=== PATIENT | male | born 1945 | race Hispanic/Latino ===

== ENCOUNTER → 2020-01-29 | Outpatient (CLI) | payer OTHER | END | disposition home or self-care (01) | LOC: RAH 14:05 | PROVIDERS: ATTEND Family Medicine | DX: M51.26 Other intervertebral disc displacement, lumbar region (principal); M48.061 Spinal stenosis, lumbar region without neurogenic claudication; M89.38 Hypertrophy of bone, other site | CPT/HCPCS: 72148 ==

== ENCOUNTER 2023-10-10 11:00 | Inpatient (IN) | payer OTHER ==
[~2023-10-10] VITALS: Ht 162.6 cm; Wt 65.8 kg
[2023-10-10 12:44] LABS: BASOPHILS # (AUTO) 0.02 K/uL (0.00-0.20); BASOPHILS % (AUTO) 0.3 % (0.0-5.0); EOSINOPHILS # (AUTO) 0.17 K/uL (0.00-0.70); EOSINOPHILS % (AUTO) 2.5 % (0.0-8.0); HEMATOCRIT 39.1 % (42-54); IMMATURE GRANULOCYTE ABSOLUTE 0.01 K/uL (0-1); LYMPHOCYTES # (AUTO) 1.9 K/uL (1.0-4.8); MEAN CORPUSCULAR HEMOGLOBIN 33.2 pg (27.0-33.0); MEAN CORPUSCULAR HGB CONC 33.2 g/dL (32.0-36.0); MEAN CORPUSCULAR VOLUME 99.7 fL (79-99); MONOCYTES # (AUTO) 0.6 K/uL (0.1-1.0); MONOCYTES % (AUTO) 8.7 % (3.0-13.0); NEUTROPHILS # (AUTO) 4.1 K/uL (1.8-7.7); NEUTROPHILS % (AUTO) 60.4 % (40.0-77.0); PLATELET COUNT (AUTO) 185 K/uL (130-400); RED BLOOD CELL COUNT(AUTO) 3.92 MIL/uL (4.50-6.20); RED CELL DISTRIBUTION WIDTH 12.4 % (11.0-15.5); WHITE BLOOD COUNT (AUTO) 6.8 K/uL (4.8-10.8)
[2023-10-10 12:55] LABS: INR 1.11 (0.85-1.15); PROTHROMBIN TIME 11.9 SEC (9.6-11.6)
[2023-10-10 12:56] LABS: ALBUMIN 3.4 g/dL (3.5-5.0); BILIRUBIN,TOTAL 0.4 mg/dL (0.2-1.0); CREATININE 1.3 mg/dL (0.5-1.3); HEMOGLOBIN A1C 6.1 % (4.0-6.0); PARTIAL THROMBOPLASTIN TIME 25.4 SEC (26.3-35.5); POTASSIUM 4.3 mmol/L (3.5-5.1); TOTAL PROTEIN, SERUM 6.8 g/dL (6.0-8.3)
[2023-10-10 13:05] VITALS: BP 116/66; PULSE 89; RESP 18; TEMP 98.1
[2023-10-10 13:06] LABS: B-TYPE NATRIURETIC PEPTIDE 659 pg/mL (0-100)
[2023-10-10 13:19] LABS: ABG BASE EXCESS -1.9 mmol/L (-2.0-3.0); ABG HCO3 21.4 mmol/L (21.0-28.0); ABG OXYGEN SATURATION 96.1 % (94.0-98.0); ABG PCO2 33 mmHg (35-48); ABG PH 7.437 (7.350-7.450); CARBON MONOXIDE 0.6 % (0.5-1.5); HHb 3.9; PO2, ARTERIAL BG 83.2 mmHg (83.0-108.0); VENT MODE, BG RA (ROOM AIR)
[2023-10-10] MEDS ORDERED: ATOR40TA71 PO (13:31)
[2023-10-10] MEDS ORDERED: AEC81 PO (13:31)
[2023-10-10] MEDS ORDERED: GLIM4TAB36 PO (13:31)
[2023-10-10] MEDS ORDERED: METF-526 PO (13:31)
[2023-10-10] MEDS ORDERED: LOSA25TA41 PO (13:31)
[2023-10-11] VITALS (52 sets, daily range): BP systolic 87–172; BP diastolic 39–82; PULSE 77–136; RESP 5–19; TEMP 96.9–100.7; O2SAT 97–100
[2023-10-11] MEDS ORDERED: EPINEPHRINE 10 MG in 0.9% NACL 250ML IV PRN (06:30)
[2023-10-11] MEDS ORDERED: NOREPINEPHRIN 8MG/250ML NS 250 ML IV PRN (06:30)
[2023-10-11] MEDS ORDERED: LIDOCAINE 2G/250ML 250 ML IV ONE (07:47)
[2023-10-11] MEDS ORDERED: NITROGLYCERIN 50MG/D5W 250ML 1 BOT ONE (07:48)
[2023-10-11] MEDS ORDERED: HEParin-NS 1,000 UNIT/500 ML 500 ML IV ONE (07:49)
[2023-10-11] MEDS: ceFAZolin SODIUM 2 GM VIAL ONE (07:57)
[2023-10-11] MEDS: 0.9%NACL 1000ML 1,000 ML IV ONE (07:57)
[2023-10-11] MEDS: metoPROLOL tartRATE 25 MG TAB ONE (08:27)
[2023-10-11] MEDS: metoPROLOL tartRATE 25 MG TAB PO ONE (08:27)
[2023-10-11] MEDS ORDERED: METO25TA6 PO (08:33)
[2023-10-11] MEDS ORDERED: HEParin 10,000 UNIT/10ML (1,000 UNIT/ML) VIAL ONE ×4 (10:01→11:28)
[2023-10-11] MEDS ORDERED: SODIUM BICARB 50MEQ 50ML VIAL 200 ML ONE (10:01)
[2023-10-11] MEDS ORDERED: aminoCAProic ACID 5,000MG VIAL ONE (10:01)
[2023-10-11] MEDS ORDERED: EPINEPHrine PF 1MG (1:1,000) 1 MG/ML AMP ONE (10:01)
[2023-10-11] MEDS ORDERED: LIDOCAINE PF 100MG/5ML (2%) SYRINGE 5ML ONE ×2 (10:01→11:26)
[2023-10-11] MEDS ORDERED: PROTamine SULFate 10 MG/ML 25ML VIAL IV ONE (10:01)
[2023-10-11] MEDS ORDERED: NOREPINEPHRINE BITARTRATE 1 MG/1 ML ML IV ONE (10:01)
[2023-10-11] MEDS ORDERED: proPOFol 10 MG/ML 20ML VIAL IV ONE (10:02)
[2023-10-11] MEDS ORDERED: FENTanyl CITRate PF 50 MCG/1 ML 20ML VIAL IJ ONE (10:02)
[2023-10-11] MEDS ORDERED: rocuRONium bROMide 10MG/1ML 5ML VL ONE (10:03)
[2023-10-11] MEDS ORDERED: VASOpressin 20 UNITS/ML 1ML VIAL ONE (10:35)
[2023-10-11] MEDS ORDERED: AMIOdarone 150MG VIAL ONE (10:35)
[2023-10-11 10:42] LABS: ABG BASE EXCESS -2.1 mmol/L (-2.0-3.0); ABG HCO3 21.9 mmol/L (21.0-28.0); ABG OXYGEN SATURATION 99.7 % (94.0-98.0); ABG PCO2 35 mmHg (35-48); ABG PH 7.416 (7.350-7.450); CARBON MONOXIDE 0 % (0.5-1.5); DEVICE COMMENT 1; HHb 0.3; PO2, ARTERIAL BG 460.1 mmHg (83.0-108.0); TEMPERATURE, CELSIUS BG 36.4 CELSIUS (35.5-37.0)
[2023-10-11] MEDS ORDERED: SODIUM BICARB 50MEQ 50ML VIAL 100 ML ONE ×2 (10:43→10:49)
[2023-10-11] MEDS: POTASSIUM CHLORIDE 20 MEQ/100 ML IV ONE (10:46)
[2023-10-11] MEDS: ceFAZolin SODIUM 1 GM VIAL ONE (10:56)
[2023-10-11] MEDS: PAPAVERINE HCL 30 MG/ML 2ML VIAL ONE (10:57)
[2023-10-11] MEDS ORDERED: ETOMIDATE 20MG VIAL ONE (11:27)
[2023-10-11] MEDS ORDERED: proPOFol 1000 MG/100 ML 100 ML IV PRN (11:30)
[2023-10-11] MEDS ORDERED: aminoCAProic ACID 5,000MG VIAL 15,000 MG in 0.9% NACL 250ML 250 ML IV SCH (11:30)
[2023-10-11] MEDS ORDERED: NOREPINEPHRINE BITARTRATE 8 MG in DEXTROSE 5%-WATER 250 ML IV PRN (11:30)
[2023-10-11] MEDS ORDERED: CALCIUM GLUC 1GM 1 GM in 0.9%NACL 50ML 50 ML IV PRN (11:30)
[2023-10-11] MEDS ORDERED: MAGNESIUM HYDROXIDE 30 ML/UDCUP PO PRN (11:30)
[2023-10-11] MEDS ORDERED: 0.9%NACL 10ML VIAL IVP PRN (11:30)
[2023-10-11] MEDS ORDERED: acetaMINOPHEN 650 MG SUPPOSITORY RC PRN (11:30)
[2023-10-11] MEDS ORDERED: LACTULOSE 20 GM/30 ML UDCUP PO PRN (11:30)
[2023-10-11] MEDS ORDERED: 0.9% NACL 500ML IV.SOLN 500 ML IV SCH (11:30)
[2023-10-11] MEDS ORDERED: NITROGLYCERIN 50MG/D5W 250ML 250 BOT IV SCH (11:30)
[2023-10-11] MEDS ORDERED: GLUCAGON 1MG KIT 1 MG ML IM PRN (11:30)
[2023-10-11] MEDS ORDERED: morPHINE 4 MG SYG IV PRN (11:30)
[2023-10-11 11:44] LABS: ABG BASE EXCESS -0.3 mmol/L (-2.0-3.0); ABG HCO3 24.7 mmol/L (21.0-28.0); ABG OXYGEN SATURATION 99.5 % (94.0-98.0); ABG PCO2 42 mmHg (35-48); ABG PH 7.389 (7.350-7.450); CARBON MONOXIDE 0.3 % (0.5-1.5); DEVICE COMMENT 2; HHb 0.5; PO2, ARTERIAL BG 355.7 mmHg (83.0-108.0); TEMPERATURE, CELSIUS BG 35.9 CELSIUS (35.5-37.0)
[2023-10-11 12:11] LABS: ABG BASE EXCESS 1.9 mmol/L (-2.0-3.0); ABG OXYGEN SATURATION 99.7 % (94.0-98.0); ABG PCO2 39 mmHg (35-48); ABG PH 7.447 (7.350-7.450); CARBON MONOXIDE 0.3 % (0.5-1.5); DEVICE COMMENT 3; HHb 0.3; PO2, ARTERIAL BG 443.9 mmHg (83.0-108.0); TEMPERATURE, CELSIUS BG 35.8 CELSIUS (35.5-37.0)
[2023-10-11] MEDS ORDERED: COMPOUND IV REFRIGERATED 1 EACH IVSOLN MISC PRN (12:30)
[2023-10-11] MEDS ORDERED: COMPOUND IV MISC 1 EACH IVSOLN MISC PRN (12:30)
[2023-10-11] MEDS ORDERED: HEParin 10,000 UNIT/10ML (1,000 UNIT/ML) VIAL IV ONE (12:44)
[2023-10-11 13:25] LABS: ABG BASE EXCESS -5.3 mmol/L (-2.0-3.0); ABG HCO3 19.1 mmol/L (21.0-28.0); ABG OXYGEN SATURATION 99.5 % (94.0-98.0); ABG PCO2 33 mmHg (35-48); ABG PH 7.382 (7.350-7.450); CARBON MONOXIDE 0.3 % (0.5-1.5); DEVICE COMMENT 4; HHb 0.5; PO2, ARTERIAL BG 363.9 mmHg (83.0-108.0); TEMPERATURE, CELSIUS BG 35.6 CELSIUS (35.5-37.0)
[2023-10-11] MEDS ORDERED: POTASSIUM CHLORIDE 20 MEQ/100 ML IV ONE (13:26)
[2023-10-11 14:19] LABS: ABG BASE EXCESS 4.7 mmol/L (-2.0-3.0); ABG HCO3 29.7 mmol/L (21.0-28.0); ABG OXYGEN SATURATION 90.3 % (94.0-98.0); ABG PCO2 46 mmHg (35-48); ABG PH 7.431 (7.350-7.450); CARBON MONOXIDE 0.1 % (0.5-1.5); HHb 9.7; VENT MODE, BG SIMV PS10 (ROOM AIR)
[2023-10-11 14:27] LABS: HEMATOCRIT 33.7 % (42-54); MEAN CORPUSCULAR HEMOGLOBIN 32.7 pg (27.0-33.0); MEAN CORPUSCULAR HGB CONC 34.4 g/dL (32.0-36.0); MEAN CORPUSCULAR VOLUME 94.9 fL (79-99); RED BLOOD CELL COUNT(AUTO) 3.55 MIL/uL (4.50-6.20); RED CELL DISTRIBUTION WIDTH 12.2 % (11.0-15.5); WHITE BLOOD COUNT (AUTO) 18.4 K/uL (4.8-10.8)
[2023-10-11 14:43] LABS: CREATININE 1.2 mg/dL (0.5-1.3); MAGNESIUM 1.6 mg/dL (1.80-2.40); PHOSPHORUS 3.5 mg/dL (2.5-4.9); POTASSIUM 4.4 mmol/L (3.5-5.1)
[2023-10-11 14:46] LABS: INR 1.31 (0.85-1.15); PROTHROMBIN TIME 13.9 SEC (9.6-11.6)
[2023-10-11 14:47] LABS: PARTIAL THROMBOPLASTIN TIME 23.5 SEC (26.3-35.5)
[2023-10-11] MEDS: ALBUMIN (HUMAN) 5% 250 ML IV PRN (15:08)
[2023-10-11 15:22] LABS: ABG BASE EXCESS -2.8 mmol/L (-2.0-3.0); ABG HCO3 22.8 mmol/L (21.0-28.0); ABG OXYGEN SATURATION 99.3 % (94.0-98.0); ABG PCO2 43 mmHg (35-48); ABG PH 7.345 (7.350-7.450); CARBON MONOXIDE 0.3 % (0.5-1.5); HHb 0.7; PO2, ARTERIAL BG 373.6 mmHg (83.0-108.0); VENT MODE, BG SIMV PS10 (ROOM AIR)
[2023-10-11] MEDS: INSULIN REGULAR, HUMAN 3ML 100 UNIT in 0.9%NACL 100ML 99 ML IV SCH (15:29)
[2023-10-11] MEDS: PoTASSium chloRIDE 20MEQ/100ML 100 ML IV PRN (15:36)
[2023-10-11] MEDS: SODIUM BICARB 50MEQ 50ML VIAL IV PRN (15:36)
[2023-10-11] MEDS: ceFAZolin SODIUM 2 GM VIAL IVPB SCH (15:37)
[2023-10-11] MEDS: ASPIRIN 81MG CHEW TAB NG ONE (15:37)
[2023-10-11] MEDS: morPHINE 2 MG SYG IV PRN (15:38)
[2023-10-11] MEDS: MAGNESIUM 2GM PREMIX 50ML 50 ML IV PRN (15:49)
[2023-10-11] MEDS: ALBUMIN (HUMAN) 5% 250 ML IV ONE (16:12)
[2023-10-11 16:29] LABS: ABG BASE EXCESS 0.2 mmol/L (-2.0-3.0); ABG HCO3 25.4 mmol/L (21.0-28.0); ABG OXYGEN SATURATION 98.5 % (94.0-98.0); ABG PCO2 43 mmHg (35-48); ABG PH 7.388 (7.350-7.450); CARBON MONOXIDE 0.3 % (0.5-1.5); HHb 1.5; PO2, ARTERIAL BG 158.5 mmHg (83.0-108.0); VENT MODE, BG SIMV PS10 (ROOM AIR)
[2023-10-11 17:28] LABS: ABG BASE EXCESS -1.2 mmol/L (-2.0-3.0); ABG HCO3 22.4 mmol/L (21.0-28.0); ABG OXYGEN SATURATION 98.8 % (94.0-98.0); ABG PCO2 34 mmHg (35-48); ABG PH 7.439 (7.350-7.450); CARBON MONOXIDE 0.3 % (0.5-1.5); HHb 1.2; VENT MODE, BG SIMV PS10 (ROOM AIR)
[2023-10-11] MEDS: acetaMINOPHEN 1,000 MG/100 ML VIAL IV SCH (18:13)
[2023-10-11 18:23] LABS: ABG BASE EXCESS 1.7 mmol/L (-2.0-3.0); ABG HCO3 25.6 mmol/L (21.0-28.0); ABG OXYGEN SATURATION 98.4 % (94.0-98.0); ABG PCO2 38 mmHg (35-48); CARBON MONOXIDE 0.1 % (0.5-1.5); HHb 1.6; PO2, ARTERIAL BG 147.7 mmHg (83.0-108.0); VENT MODE, BG SIMV PS 10 (ROOM AIR)
[2023-10-11] MEDS: ALBUMIN (HUMAN) 5% 250 ML IV SCH (18:59)
[2023-10-11 19:30] LABS: ABG BASE EXCESS 0.7 mmol/L (-2.0-3.0); ABG HCO3 24.7 mmol/L (21.0-28.0); ABG OXYGEN SATURATION 98.1 % (94.0-98.0); ABG PCO2 37 mmHg (35-48); ABG PH 7.443 (7.350-7.450); CARBON MONOXIDE 0.3 % (0.5-1.5); HHb 1.9; PO2, ARTERIAL BG 135.7 mmHg (83.0-108.0); VENT MODE, BG SIMV PS 10 (ROOM AIR)
[2023-10-11] MEDS: ALBUMIN (HUMAN) 5% 500 ML IV SCH (20:12)
[2023-10-11] MEDS: doCUSate SODIUM 100 MG CAP PO ONE (20:13)
[2023-10-11] MEDS: FAMOTIDINE 20MG VIAL IV SCH (20:13)
[2023-10-11] MEDS: atorVAStatin 40 MG TABLET PO SCH (20:13)
[2023-10-11 20:25] LABS: ABG BASE EXCESS 1.8 mmol/L (-2.0-3.0); ABG HCO3 25.2 mmol/L (21.0-28.0); ABG OXYGEN SATURATION 98.3 % (94.0-98.0); ABG PCO2 35 mmHg (35-48); ABG PH 7.477 (7.350-7.450); CARBON MONOXIDE 0.3 % (0.5-1.5); HHb 1.7; PO2, ARTERIAL BG 148.3 mmHg (83.0-108.0); VENT MODE, BG SIMC PS10 (ROOM AIR)
[2023-10-11 20:26] LABS: DEVICE COMMENT LINE RNTED
[2023-10-11 21:10] LABS: ABG BASE EXCESS 0.4 mmol/L (-2.0-3.0); ABG HCO3 24.1 mmol/L (21.0-28.0); ABG OXYGEN SATURATION 98.2 % (94.0-98.0); ABG PCO2 35 mmHg (35-48); ABG PH 7.455 (7.350-7.450); CARBON MONOXIDE 0.3 % (0.5-1.5); HHb 1.8; PO2, ARTERIAL BG 156.3 mmHg (83.0-108.0); VENT MODE, BG SIMV PS10 (ROOM AIR)
[2023-10-11] MEDS: ondanSETRON 4MG INJ IV PRN (21:38)
[2023-10-11 22:01] LABS: ABG HCO3 26.7 mmol/L (21.0-28.0); ABG OXYGEN SATURATION 98.3 % (94.0-98.0); ABG PCO2 37 mmHg (35-48); ABG PH 7.472 (7.350-7.450); CARBON MONOXIDE 0.3 % (0.5-1.5); HHb 1.7; PO2, ARTERIAL BG 147.8 mmHg (83.0-108.0); VENT MODE, BG SIMV PS 10 (ROOM AIR)
[2023-10-11 23:10] LABS: ABG BASE EXCESS 3.9 mmol/L (-2.0-3.0); ABG OXYGEN SATURATION 97.9 % (94.0-98.0); ABG PCO2 40 mmHg (35-48); ABG PH 7.462 (7.350-7.450); CARBON MONOXIDE 0.3 % (0.5-1.5); HHb 2.1; PO2, ARTERIAL BG 122.1 mmHg (83.0-108.0); VENT MODE, BG CAFM (ROOM AIR)
[2023-10-12] VITALS (111 sets, daily range): BP systolic 84–149; BP diastolic 37–68; PULSE 92–113; RESP 5–27; TEMP 98–100.2; O2SAT 96–100
[2023-10-12] MEDS: traMADol HCL 50 MG TABLET PO PRN ×2 (00:19→23:11)
[2023-10-12 02:27] LABS: INR 1.34 (0.85-1.15); PROTHROMBIN TIME 14.2 SEC (9.6-11.6)
[2023-10-12 02:28] LABS: PARTIAL THROMBOPLASTIN TIME 29.2 SEC (26.3-35.5)
[2023-10-12 02:29] LABS: CREATININE 1.5 mg/dL (0.5-1.3); MAGNESIUM 2.1 mg/dL (1.80-2.40); PHOSPHORUS 1.4 mg/dL (2.5-4.9); POTASSIUM 4.3 mmol/L (3.5-5.1)
[2023-10-12 02:41] LABS: HEMATOCRIT 25.9 % (42-54); MEAN CORPUSCULAR HGB CONC 33.6 g/dL (32.0-36.0); MEAN CORPUSCULAR VOLUME 98.1 fL (79-99); RED BLOOD CELL COUNT(AUTO) 2.64 MIL/uL (4.50-6.20); RED CELL DISTRIBUTION WIDTH 12.7 % (11.0-15.5); WHITE BLOOD COUNT (AUTO) 7.8 K/uL (4.8-10.8)
[2023-10-12] MEDS: poTASSium PHOS 15 mMOL+NS250ML 250 ML IV PRN (03:24)
[2023-10-12] MEDS ORDERED: morPHINE 2 MG SYG IV PRN (07:00)
[2023-10-12] MEDS: ASPIRIN 81 MG EC TAB PO SCH (08:35)
[2023-10-12] MEDS: furoSEMIDE 20MG VIAL IV SCH (08:35)
[2023-10-12] MEDS: NOREPINEPHRIN 8MG/250ML NS 250 ML IV ONE (10:42)
[2023-10-13] VITALS (76 sets, daily range): BP systolic 82–138; BP diastolic 36–67; PULSE 90–109; RESP 6–50; TEMP 98.7–99.7; O2SAT 94–98
[2023-10-13] MEDS: DEXTROSE 50%-WATER 50 ML DISP.SYRIN IV PRN (01:58)
[2023-10-13 05:00] LABS: CREATININE 1.4 mg/dL (0.5-1.3); POTASSIUM 3.8 mmol/L (3.5-5.1)
[2023-10-13 05:19] LABS: HEMATOCRIT 23.1 % (42-54); MEAN CORPUSCULAR HEMOGLOBIN 32.8 pg (27.0-33.0); MEAN CORPUSCULAR HGB CONC 33.3 g/dL (32.0-36.0); MEAN CORPUSCULAR VOLUME 98.3 fL (79-99); PLATELET COUNT (AUTO) 58 K/uL (130-400); RED BLOOD CELL COUNT(AUTO) 2.35 MIL/uL (4.50-6.20); RED CELL DISTRIBUTION WIDTH 13.2 % (11.0-15.5); WHITE BLOOD COUNT (AUTO) 8.6 K/uL (4.8-10.8)
[2023-10-13] MEDS: furoSEMIDE 20 MG TABLET PO SCH (08:29)
[2023-10-13] MEDS: miDODRine HCL 5 MG TABLET PO ONE (10:42)
[2023-10-13] MEDS: INSULIN humuLIN R 100 UNIT/ML 3ML SQ SCH (12:23)
[2023-10-13] MEDS: miDODRine HCL 5 MG TABLET PO SCH (14:35)
[2023-10-13] MEDS: EPINEPHrine PF 1MG (1:1,000) 10 MG in 0.9% NACL 250ML 240 ML IV PRN (15:32)
[2023-10-13] MEDS: DiphenhydrAMINE HCL 50 MG/ML VIAL IV PRN (21:26)
[2023-10-13] MEDS: dexmedeTOMIDine 400MCG/NS100ML IV SCH (23:55)
[2023-10-14] VITALS (77 sets, daily range): BP systolic 81–139; BP diastolic 45–85; PULSE 80–109; RESP 10–44; TEMP 98.7–100.9; O2SAT 92–98
[2023-10-14 04:05] LABS: CREATININE 1.5 mg/dL (0.5-1.3); MAGNESIUM 2.1 mg/dL (1.80-2.40); POTASSIUM 4.6 mmol/L (3.5-5.1)
[2023-10-14 04:54] LABS: HEMATOCRIT 28.8 % (42-54); MEAN CORPUSCULAR HEMOGLOBIN 32.9 pg (27.0-33.0); MEAN CORPUSCULAR VOLUME 99.7 fL (79-99); RED BLOOD CELL COUNT(AUTO) 2.89 MIL/uL (4.50-6.20); RED CELL DISTRIBUTION WIDTH 12.5 % (11.0-15.5); WHITE BLOOD COUNT (AUTO) 10.1 K/uL (4.8-10.8)
[2023-10-14] MEDS: acetaMINOPHEN 325 MG TAB PO PRN (15:23)
[2023-10-15] VITALS (83 sets, daily range): BP systolic 96–131; BP diastolic 37–71; PULSE 28–104; RESP 10–33; TEMP 97.8–99.4; O2SAT 97–100
[2023-10-15 03:41] LABS: HEMATOCRIT 23.6 % (42-54); MEAN CORPUSCULAR HEMOGLOBIN 32.8 pg (27.0-33.0); MEAN CORPUSCULAR HGB CONC 33.5 g/dL (32.0-36.0); MEAN CORPUSCULAR VOLUME 97.9 fL (79-99); RED BLOOD CELL COUNT(AUTO) 2.41 MIL/uL (4.50-6.20); RED CELL DISTRIBUTION WIDTH 12.3 % (11.0-15.5); WHITE BLOOD COUNT (AUTO) 8.4 K/uL (4.8-10.8)
[2023-10-15 03:50] LABS: CREATININE 1.3 mg/dL (0.5-1.3); POTASSIUM 3.4 mmol/L (3.5-5.1)
[2023-10-15] MEDS: FOLic ACID 1 MG TABLET PO SCH (08:26)
[2023-10-15] MEDS: CYANOCOBALAMIN (VITAMIN B-12) 1,000 MCG TABLET PO SCH (08:26)
[2023-10-15] MEDS: FONDAPARINUX SODIUM 2.5 MG/0.5 ML SQ SCH (08:28)
[2023-10-15 13:03] LABS: MAGNESIUM 1.9 mg/dL (1.80-2.40); POTASSIUM 3.9 mmol/L (3.5-5.1); THYROID STIMULATING HORMONE 2.63 uIU/mL (0.36-3.74)
[2023-10-15] MEDS: doBUTamine 250MG/D5 250ML 250 ML IV PRN (14:27)
[2023-10-15] MEDS: AMIOdarone 900MG VIAL 150 MG in DEXTROSE 5%-WATER 100 ML IV PRN (14:46)
[2023-10-15] MEDS: AMIOdarone 900MG VIAL 360 MG in DEXTROSE 5%-WATER 200 ML IV PRN (15:00)
[2023-10-15] MEDS: furoSEMIDE 20 MG TABLET PO SCH (17:07)
[2023-10-15] MEDS: AMIOdarone 900MG VIAL 540 MG in DEXTROSE 5%-WATER 300 ML IV PRN (21:09)
[2023-10-15 21:24] LABS: MAGNESIUM 2.4 mg/dL (1.80-2.40); POTASSIUM 3.4 mmol/L (3.5-5.1)
[2023-10-16] VITALS (55 sets, daily range): BP systolic 88–118; BP diastolic 44–80; PULSE 73–108; RESP 16–38; TEMP 98.2–98.5; O2SAT 98–100
[2023-10-16 04:39] LABS: HEMATOCRIT 22.6 % (42-54); MEAN CORPUSCULAR HEMOGLOBIN 32.6 pg (27.0-33.0); MEAN CORPUSCULAR HGB CONC 33.6 g/dL (32.0-36.0); RED BLOOD CELL COUNT(AUTO) 2.33 MIL/uL (4.50-6.20); RED CELL DISTRIBUTION WIDTH 12.5 % (11.0-15.5); WHITE BLOOD COUNT (AUTO) 5.1 K/uL (4.8-10.8)
[2023-10-16 04:51] LABS: CREATININE 1.3 mg/dL (0.5-1.3); POTASSIUM 3.6 mmol/L (3.5-5.1)
[2023-10-16] MEDS: PoTASSium chl 10% ELIXIR 20MEQ 20 MEQ/15 ML UDCUP PO PRN (10:36)
[2023-10-16 11:38] LABS: HEMATOCRIT 25.1 % (42-54)
[2023-10-16 14:49] LABS: MAGNESIUM 2.3 mg/dL (1.80-2.40); POTASSIUM 3.9 mmol/L (3.5-5.1)
[2023-10-16] MEDS: AMIOdarone 200 MG TABLET PO ONE (14:58)
[2023-10-16] MEDS: metoPROLOL tartRATE 1 MG/ML 5ML VIAL IV ONE (15:29)
[2023-10-16] MEDS ORDERED: metoPROLOL tartRATE 1 MG/ML 5ML VIAL IV PRN (16:30)
[2023-10-16] MEDS: AMIOdarone 200 MG TABLET PO SCH (20:13)
[2023-10-17] VITALS (62 sets, daily range): BP systolic 85–126; BP diastolic 45–79; PULSE 81–101; RESP 14–33; TEMP 97.6–98.1; O2SAT 90–99
[2023-10-17 05:23] LABS: EOSINOPHILS # (AUTO) 0.23 K/uL (0.00-0.70); EOSINOPHILS % (AUTO) 3.3 % (0.0-8.0); HEMATOCRIT 24.7 % (42-54); IMMATURE GRANULOCYTE ABSOLUTE 0.04 K/uL (0-1); LYMPHOCYTES # (AUTO) 0.8 K/uL (1.0-4.8); LYMPHOCYTES % (AUTO) 11.1 % (21.0-51.0); MEAN CORPUSCULAR HEMOGLOBIN 32.7 pg (27.0-33.0); MEAN CORPUSCULAR HGB CONC 32.8 g/dL (32.0-36.0); MEAN CORPUSCULAR VOLUME 99.6 fL (79-99); MONOCYTES # (AUTO) 0.7 K/uL (0.1-1.0); MONOCYTES % (AUTO) 9.5 % (3.0-13.0); NEUTROPHILS # (AUTO) 5.2 K/uL (1.8-7.7); NEUTROPHILS % (AUTO) 75.5 % (40.0-77.0); PLATELET COUNT (AUTO) 79 K/uL (130-400); RED BLOOD CELL COUNT(AUTO) 2.48 MIL/uL (4.50-6.20); RED CELL DISTRIBUTION WIDTH 12.6 % (11.0-15.5); WHITE BLOOD COUNT (AUTO) 6.9 K/uL (4.8-10.8)
[2023-10-17 05:54] LABS: ALBUMIN 2.7 g/dL (3.5-5.0); BILIRUBIN,TOTAL 1.4 mg/dL (0.2-1.0); CREATININE 1.5 mg/dL (0.5-1.3); MAGNESIUM 2.2 mg/dL (1.80-2.40); POTASSIUM 4.9 mmol/L (3.5-5.1); TOTAL PROTEIN, SERUM 5.5 g/dL (6.0-8.3)
[2023-10-17] MEDS: IpraTROPium 0.5 MG/2.5 ML INH IH PRN (06:56)
[2023-10-17] MEDS: BUMETANIDE 1MG/4ML VIAL IVP ONE (09:37)
[2023-10-17] MEDS: acetaMINOPHEN 325 MG TAB PO PRN (12:00)
[2023-10-17 13:35] LABS: COVID19 (SARS ANTIGEN RAPID) PRESUMPTIVE NEGATIVE (NEGATIVE)
[2023-10-17 13:39] LABS: ABG HCO3 26.4 mmol/L (21.0-28.0); ABG OXYGEN SATURATION 71.5 % (94.0-98.0); ABG PCO2 35 mmHg (35-48); ABG PH 7.491 (7.350-7.450); CARBON MONOXIDE 0.5 % (0.5-1.5); DEVICE COMMENT RRRENE; HHb 28.2; PO2, ARTERIAL BG < 45.0 mmHg (83.0-108.0); VENT MODE, BG NC (ROOM AIR)
[2023-10-17 14:10] LABS: INFLUENZA TYPE A Negative For Type A (NEGATIVE); INFLUENZA TYPE B Negative For Type B (NEGATIVE)
[2023-10-18] VITALS (44 sets, daily range): BP systolic 93–122; BP diastolic 40–81; PULSE 51–109; RESP 14–36; TEMP 97.8–99.5; O2SAT 90–99
[2023-10-18 04:27] LABS: BASOPHILS # (AUTO) 0.01 K/uL (0.00-0.20); BASOPHILS % (AUTO) 0.1 % (0.0-5.0); EOSINOPHILS # (AUTO) 0.48 K/uL (0.00-0.70); EOSINOPHILS % (AUTO) 6.5 % (0.0-8.0); HEMATOCRIT 24.7 % (42-54); IMMATURE GRANULOCYTE ABSOLUTE 0.05 K/uL (0-1); LYMPHOCYTES % (AUTO) 12.9 % (21.0-51.0); MEAN CORPUSCULAR HEMOGLOBIN 33.1 pg (27.0-33.0); MEAN CORPUSCULAR HGB CONC 33.2 g/dL (32.0-36.0); MEAN CORPUSCULAR VOLUME 99.6 fL (79-99); MONOCYTES # (AUTO) 0.7 K/uL (0.1-1.0); MONOCYTES % (AUTO) 8.8 % (3.0-13.0); NEUTROPHILS # (AUTO) 5.2 K/uL (1.8-7.7); NUCLEATED RED BLOOD CELLS 0.3 % (0.0-0.19); PLATELET COUNT (AUTO) 102 K/uL (130-400); RED BLOOD CELL COUNT(AUTO) 2.48 MIL/uL (4.50-6.20); RED CELL DISTRIBUTION WIDTH 13.2 % (11.0-15.5); WHITE BLOOD COUNT (AUTO) 7.4 K/uL (4.8-10.8)
[2023-10-18 04:45] LABS: ALBUMIN 2.6 g/dL (3.5-5.0); CREATININE 1.5 mg/dL (0.5-1.3); MAGNESIUM 2.2 mg/dL (1.80-2.40); PHOSPHORUS 2.9 mg/dL (2.5-4.9); POTASSIUM 3.5 mmol/L (3.5-5.1); TOTAL PROTEIN, SERUM 5.2 g/dL (6.0-8.3)
[2023-10-18] MEDS: furoSEMIDE 20 MG TABLET PO SCH (09:09)
[2023-10-18] MEDS: INSULIN GLARgine 100 UNITS/ML 10 ML VIAL SQ SCH (16:02)
[2023-10-19] VITALS (8 sets, daily range): BP systolic 97–108; BP diastolic 56–65; PULSE 85–98; RESP 16–18; TEMP 98.1–99; O2SAT 97
[2023-10-19 03:48] LABS: BASOPHILS # (AUTO) 0.01 K/uL (0.00-0.20); BASOPHILS % (AUTO) 0.1 % (0.0-5.0); EOSINOPHILS # (AUTO) 0.32 K/uL (0.00-0.70); EOSINOPHILS % (AUTO) 3.8 % (0.0-8.0); HEMATOCRIT 24.5 % (42-54); IMMATURE GRANULOCYTE ABSOLUTE 0.03 K/uL (0-1); LYMPHOCYTES # (AUTO) 0.9 K/uL (1.0-4.8); MEAN CORPUSCULAR HEMOGLOBIN 33.1 pg (27.0-33.0); MEAN CORPUSCULAR HGB CONC 32.2 g/dL (32.0-36.0); MEAN CORPUSCULAR VOLUME 102.5 fL (79-99); MONOCYTES # (AUTO) 0.6 K/uL (0.1-1.0); MONOCYTES % (AUTO) 6.9 % (3.0-13.0); NEUTROPHILS # (AUTO) 6.7 K/uL (1.8-7.7); NEUTROPHILS % (AUTO) 78.8 % (40.0-77.0); PLATELET COUNT (AUTO) 127 K/uL (130-400); RED BLOOD CELL COUNT(AUTO) 2.39 MIL/uL (4.50-6.20); RED CELL DISTRIBUTION WIDTH 13.8 % (11.0-15.5); WHITE BLOOD COUNT (AUTO) 8.5 K/uL (4.8-10.8)
[2023-10-19 04:08] LABS: ALBUMIN 2.6 g/dL (3.5-5.0); BILIRUBIN,TOTAL 1.1 mg/dL (0.2-1.0); CREATININE 1.4 mg/dL (0.5-1.3); MAGNESIUM 2.1 mg/dL (1.80-2.40); POTASSIUM 3.4 mmol/L (3.5-5.1); TOTAL PROTEIN, SERUM 5.2 g/dL (6.0-8.3)
[2023-10-19] MEDS: SPIRONOLACTONE 25 MG TAB PO SCH (09:16)
[2023-10-19] MEDS: PoTASSium chloRIDE 20MEQ ER 20 MEQ ERTAB PO PRN (09:17)
[2023-10-19] MEDS: furoSEMIDE 20 MG TABLET PO ONE (14:46)
[2023-10-19] MEDS: BALSAM PERU/CASTOR OIL 60 GM TUBE TP SCH (20:31)
[2023-10-19] MEDS: ZOSYN 3.375GM +NS 50ML IV SCH (20:59)
[2023-10-20] VITALS (10 sets, daily range): BP systolic 95–115; BP diastolic 41–64; PULSE 73–89; RESP 18–20; TEMP 96.7–99.1; O2SAT 97
[2023-10-20 04:17] LABS: BASOPHILS # (AUTO) 0.02 K/uL (0.00-0.20); BASOPHILS % (AUTO) 0.2 % (0.0-5.0); EOSINOPHILS # (AUTO) 0.26 K/uL (0.00-0.70); EOSINOPHILS % (AUTO) 2.7 % (0.0-8.0); HEMATOCRIT 24.6 % (42-54); IMMATURE GRANULOCYTE ABSOLUTE 0.06 K/uL (0-1); LYMPHOCYTES % (AUTO) 9.7 % (21.0-51.0); MEAN CORPUSCULAR HEMOGLOBIN 33.1 pg (27.0-33.0); MEAN CORPUSCULAR HGB CONC 32.9 g/dL (32.0-36.0); MEAN CORPUSCULAR VOLUME 100.4 fL (79-99); MONOCYTES # (AUTO) 0.6 K/uL (0.1-1.0); MONOCYTES % (AUTO) 5.9 % (3.0-13.0); NEUTROPHILS # (AUTO) 7.9 K/uL (1.8-7.7); NEUTROPHILS % (AUTO) 80.9 % (40.0-77.0); PLATELET COUNT (AUTO) 163 K/uL (130-400); RED BLOOD CELL COUNT(AUTO) 2.45 MIL/uL (4.50-6.20); RED CELL DISTRIBUTION WIDTH 14.1 % (11.0-15.5); WHITE BLOOD COUNT (AUTO) 9.8 K/uL (4.8-10.8)
[2023-10-20 04:35] LABS: ALBUMIN 2.5 g/dL (3.5-5.0); BILIRUBIN,TOTAL 1.1 mg/dL (0.2-1.0); CREATININE 1.4 mg/dL (0.5-1.3); MAGNESIUM 2.1 mg/dL (1.80-2.40); POTASSIUM 3.6 mmol/L (3.5-5.1); TOTAL PROTEIN, SERUM 5.4 g/dL (6.0-8.3)
[2023-10-20] MEDS: furoSEMIDE 20 MG TABLET PO SCH (09:20)
[2023-10-21] VITALS (8 sets, daily range): BP systolic 96–120; BP diastolic 47–56; PULSE 77–88; RESP 16–20; TEMP 97.8–98.5; O2SAT 96–97
[2023-10-21 04:15] LABS: BASOPHILS # (AUTO) 0.01 K/uL (0.00-0.20); BASOPHILS % (AUTO) 0.1 % (0.0-5.0); EOSINOPHILS # (AUTO) 0.32 K/uL (0.00-0.70); EOSINOPHILS % (AUTO) 4.1 % (0.0-8.0); HEMATOCRIT 25.2 % (42-54); IMMATURE GRANULOCYTE ABSOLUTE 0.03 K/uL (0-1); LYMPHOCYTES % (AUTO) 12.8 % (21.0-51.0); MEAN CORPUSCULAR HEMOGLOBIN 32.3 pg (27.0-33.0); MEAN CORPUSCULAR HGB CONC 32.9 g/dL (32.0-36.0); MEAN CORPUSCULAR VOLUME 98.1 fL (79-99); MONOCYTES # (AUTO) 0.6 K/uL (0.1-1.0); MONOCYTES % (AUTO) 7.3 % (3.0-13.0); NEUTROPHILS # (AUTO) 5.9 K/uL (1.8-7.7); NEUTROPHILS % (AUTO) 75.3 % (40.0-77.0); PLATELET COUNT (AUTO) 204 K/uL (130-400); RED BLOOD CELL COUNT(AUTO) 2.57 MIL/uL (4.50-6.20); WHITE BLOOD COUNT (AUTO) 7.9 K/uL (4.8-10.8)
[2023-10-21 04:36] LABS: ALBUMIN 2.5 g/dL (3.5-5.0); BILIRUBIN,TOTAL 1.1 mg/dL (0.2-1.0); CREATININE 1.6 mg/dL (0.5-1.3); MAGNESIUM 2.1 mg/dL (1.80-2.40); POTASSIUM 3.7 mmol/L (3.5-5.1); TOTAL PROTEIN, SERUM 5.7 g/dL (6.0-8.3)
[2023-10-21 15:11] LABS: SRA HIGH DOSE HEPARIN <1 % (0-20); SRA, LOW DOSE HEPARIN <1 % (0-20)
[2023-10-22] VITALS (8 sets, daily range): BP systolic 96–109; BP diastolic 54–64; PULSE 78–87; RESP 18–22; TEMP 97.9–98.3; O2SAT 94–97
[2023-10-22 03:58] LABS: BASOPHILS # (AUTO) 0.02 K/uL (0.00-0.20); BASOPHILS % (AUTO) 0.3 % (0.0-5.0); EOSINOPHILS # (AUTO) 0.31 K/uL (0.00-0.70); HEMATOCRIT 26.3 % (42-54); IMMATURE GRANULOCYTE ABSOLUTE 0.03 K/uL (0-1); LYMPHOCYTES # (AUTO) 1.4 K/uL (1.0-4.8); LYMPHOCYTES % (AUTO) 18.1 % (21.0-51.0); MEAN CORPUSCULAR HGB CONC 33.5 g/dL (32.0-36.0); MEAN CORPUSCULAR VOLUME 98.5 fL (79-99); MONOCYTES # (AUTO) 0.7 K/uL (0.1-1.0); MONOCYTES % (AUTO) 9.3 % (3.0-13.0); NEUTROPHILS # (AUTO) 5.3 K/uL (1.8-7.7); NEUTROPHILS % (AUTO) 67.9 % (40.0-77.0); PLATELET COUNT (AUTO) 221 K/uL (130-400); RED BLOOD CELL COUNT(AUTO) 2.67 MIL/uL (4.50-6.20); RED CELL DISTRIBUTION WIDTH 13.6 % (11.0-15.5); WHITE BLOOD COUNT (AUTO) 7.8 K/uL (4.8-10.8)
[2023-10-22 04:05] LABS: CREATININE 1.7 mg/dL (0.5-1.3); POTASSIUM 3.6 mmol/L (3.5-5.1)
[2023-10-22] MEDS: furoSEMIDE 20 MG TABLET PO SCH (10:00)
[2023-10-22] MEDS: DabiGATran 150MG CAPSULE PO SCH (22:15)
[2023-10-23] VITALS (9 sets, daily range): BP systolic 92–100; BP diastolic 48–58; PULSE 16–78; RESP 16–18; TEMP 97.7–98.8; O2SAT 95–97
[2023-10-23 04:17] LABS: CREATININE 1.9 mg/dL (0.5-1.3); POTASSIUM 3.8 mmol/L (3.5-5.1)
[2023-10-23] MEDS: furoSEMIDE 20 MG TABLET PO ONE (10:13)
[2023-10-23] MEDS: furoSEMIDE 20 MG TABLET PO SCH (16:02)
[2023-10-24] VITALS (9 sets, daily range): BP systolic 90–119; BP diastolic 53–63; PULSE 71–85; RESP 16–19; TEMP 97.8–98.7; O2SAT 97–100
[2023-10-24 03:31] LABS: CREATININE 1.6 mg/dL (0.5-1.3); POTASSIUM 3.8 mmol/L (3.5-5.1)
[2023-10-24] MEDS ORDERED: traMADol HCL 50 MG TABLET PO PRN (18:30)
[2023-10-25 04:39] VITALS: BP 109/61; PULSE 78; RESP 20; TEMP 98.5
[2023-10-25 05:50] LABS: CREATININE 1.6 mg/dL (0.5-1.3); POTASSIUM 3.7 mmol/L (3.5-5.1)
[2023-10-25 07:00] VITALS: BP 103/62; PULSE 77; RESP 20; TEMP 98.4
[2023-10-25 07:15] VITALS: O2SAT 99
[2023-10-25 11:00] VITALS: BP 106/59; PULSE 83; RESP 18; TEMP 97
[2023-10-25] MEDS ORDERED: DABI150C PO (12:46)
[2023-10-25] MEDS ORDERED: FOLI1 PO (12:46)
[2023-10-25] MEDS ORDERED: MIDO10TA PO (12:46)
[2023-10-25] MEDS ORDERED: FURO20TA6 PO (12:46)
[2023-10-25] MEDS ORDERED: AMIO200T44 PO (12:46)
[2023-10-25] MEDS ORDERED: CYAN-52 PO (12:46)
== END 2023-10-25 13:35 | disposition home or self-care (01) | DRG 235 ==
LOC: DAHIP 10-11 06:49 → 2CV 10-11 10:39 → 2BH 10-13 15:25 → 2AH 10-18 18:22
PROVIDERS: ADMIT Internal Medicine Critical Care Medicine; ATTEND Internal Medicine Critical Care Medicine
PROC: 5A1221Z Performance of Cardiac Output, Continuous (ICD-10-PCS; 2023-10-11)
PROC: 5A1945Z Respiratory Ventilation, 24-96 Consecutive Hours (ICD-10-PCS; 2023-10-11)
PROC: 0BH17EZ Insertion of Endotracheal Airway into Trachea, Via Natural or Artificial Opening (ICD-10-PCS; 2023-10-11)
PROC: 02100Z9 Bypass Coronary Artery, One Artery from Left Internal Mammary, Open Approach (ICD-10-PCS; principal; 2023-10-11 09:54)
PROC: 021209W Bypass Coronary Artery, Three Arteries from Aorta with Autologous Venous Tissue, Open Approach (ICD-10-PCS; 2023-10-11 09:54)
PROC: 06BQ4ZZ Excision of Left Saphenous Vein, Percutaneous Endoscopic Approach (ICD-10-PCS; 2023-10-11 09:54)
PROC: 0PH000Z Insertion of Rigid Plate Internal Fixation Device into Sternum, Open Approach (ICD-10-PCS; 2023-10-11 09:54)
DX: I25.10 Atherosclerotic heart disease of native coronary artery without angina pectoris (principal); I50.23 Acute on chronic systolic (congestive) heart failure; J69.0 Pneumonitis due to inhalation of food and vomit; J96.00 Acute respiratory failure, unspecified whether with hypoxia or hypercapnia; E87.0 Hyperosmolality and hypernatremia; N17.9 Acute kidney failure, unspecified; D72.829 Elevated white blood cell count, unspecified; E11.65 Type 2 diabetes mellitus with hyperglycemia; I11.0 Hypertensive heart disease with heart failure; D75.829 Heparin-induced thrombocytopenia, unspecified; E78.00 Pure hypercholesterolemia, unspecified; I08.1 Rheumatic disorders of both mitral and tricuspid valves; Z20.822 Contact with and (suspected) exposure to COVID-19; I42.8 Other cardiomyopathies; I48.91 Unspecified atrial fibrillation; Z79.02 Long term (current) use of antithrombotics/antiplatelets; Z79.82 Long term (current) use of aspirin; Z79.899 Other long term (current) drug therapy
CPT/HCPCS: 36415; 36600; 71045; 80048; 80053; 80061; 82330; 82435; 82533; 82803; 82947; 82948; 83036; 83605; 83735; 83880; 84100; 84132; 84145; 84295; 84443; 85014; 85018; 85025; 85027; 85347; 85384; 85610; 85730; 86022; 86850; 86900; 86901; 86923; 87426; 87641; 87804; 92610; 93005; 93306; 93308; 93312; 93325; 94002; 94150; 94640; 94664; A7048; G0378; J0171; J0282; J0690; J1200; J1250; J1644; J1652; J1815; J1940; J2001; J2270; J2405; J2440; J2543; J2704; J2720; J3010; J3475; J3480; J3490; J7030; J7040; J7050; J7060; J7070; J7120; P9045; A4215; A4216; A4221; A4222; A4223; A4315; A4452; A4649; A4663; A5120; A6204; A6219; A6260; C1713; C1776